=== PATIENT | male | born 1970 | race Caucasian/White ===

== ENCOUNTER 2016-09-17 18:19 | Emergency (ER) | payer MEDICARE, OTHER ==
[~2016-09-17] VITALS: Ht 182.9 cm; Wt 71.0 kg
[2016-09-17 19:37] VITALS: BP 142/81; PULSE 73; RESP 18; TEMP 97.6; O2SAT 99
--- NOTE | 2016-09-17 20:14 | PD ---
HPI Chief Complaint: Psychiatric Symptoms Time Seen by Provider: 20:09 Travel History International Travel<30 days: No Contact w/Intl Traveler<30days: No Traveled to known affect area: No History of Present Illness HPI 46-year-old male that presents to the ED for evaluation of psych. Patient was Mathur acted by police after apparently his father called the waxing machine operator stating that he was homicidal and suicidal. Patient denies any history of this. Patient appears to be very angry about his situation at this time and been here. He denies any medical complaints other than having a history of seizure disorder. From my medical records patient was here about 10 years ago and per the notes from the ED physician at the time he does appear to have some extensive psychiatric history including suicidal attempts in the past as well as anoxic encephalopathy with dementia. Patient denies drinking alcohol. Patient states that he does smoke. He denies any medical problems to me at this time. Per patient he states compliance with his medications. He is not somewhat forthcoming with information and does appear to be aggravated by questioning. He denies any substance abuse. He denies any homicidal or suicidal ideation at this time. Patient was Mathur acted by police. Unclear as to the length of symptoms that caused the patient to be Mathur acted. PFSH Past Medical History Diminished Hearing: No Seizures: Yes Tetanus Vaccination: Unknown Past Surgical History Surgical History: No Previous Surgery Social History Alcohol Use: Yes Tobacco Use: Yes (2PPD ) Substance Use: No Allergies-Medications (Allergen,Severity, Reaction): Coded Allergies: No Known Allergies (Verified , 09/17/16) Uncoded Allergies: NKA (Allergy, Unknown, 02/04/03) Reported Meds & Prescriptions Reported Meds & Active Scripts Active Active Prescriptions or Reported Medications Unobtainable Review of Systems Except as stated in HPI: all other systems reviewed are Neg Physical Exam Narrative GENERAL: SKIN: Warm and dry. HEAD: Atraumatic. Normocephalic. EYES: Pupils equal and round. No scleral icterus. No injection or drainage. ENT: No nasal bleeding or discharge. Mucous membranes pink and moist. Tongue is midline. No uvula deviation. NECK: Trachea midline. No JVD. CARDIOVASCULAR: Regular rate and rhythm. No murmurs, S3, S4. RESPIRATORY: No accessory muscle use. Clear to auscultation. Breath sounds equal bilaterally. GASTROINTESTINAL: Abdomen soft, non-tender, nondistended. Hepatic and splenic margins not palpable. MUSCULOSKELETAL: Extremities without clubbing, cyanosis, or edema. No obvious deformities. Full range of motion of the upper and lower extremities bilaterally. 2+ pulses bilaterally. NEUROLOGICAL: Awake and alert. No obvious cranial nerve deficits. Motor grossly within normal limits. Five out of 5 muscle strength in the arms and legs. Normal speech. PSYCHIATRIC: Depression mood and affect; insight and judgment normal. Data Data Last Documented VS Vital Signs Date Time Temp Pulse Resp B/P Pulse Ox O2 Delivery O2 Flow Rate FiO2 09/17/16 19:40 18 09/17/16 19:37 97.6 73 142/81 99 Orders Complete Blood Count With Diff (09/17/16 18:54) Comprehensive Metabolic Panel (09/17/16 18:54) Psych Screen (09/17/16 18:54) Drug Screen, Random Urine (09/17/16 18:54) Alcohol (Ethanol) (09/17/16 18:54) Salicylates (Aspirin) (09/17/16 18:54) Tylenol (Acetaminophen) (09/17/16 18:54) Labs Laboratory Tests Test 09/17/16 09/17/16 19:50 20:00 White Blood Count 6.5 TH/MM3 Red Blood Count 3.99 MIL/MM3 Hemoglobin 13.2 GM/DL Hematocrit 37.6 % Mean Corpuscular Volume 94.4 FL Mean Corpuscular Hemoglobin 33.1 PG Mean Corpuscular Hemoglobin 35.0 % Concent Red Cell Distribution Width 13.9 % Platelet Count 264 TH/MM3 Mean Platelet Volume 9.7 FL Neutrophils (%) (Auto) 52.9 % Lymphocytes (%) (Auto) 39.4 % Monocytes (%) (Auto) 5.2 % Eosinophils (%) (Auto) 1.5 % Basophils (%) (Auto) 1.0 % Neutrophils # (Auto) 3.4 TH/MM3 Lymphocytes # (Auto) 2.6 TH/MM3 Monocytes # (Auto) 0.3 TH/MM3 Eosinophils # (Auto) 0.1 TH/MM3 Basophils # (Auto) 0.1 TH/MM3 CBC Comment DIFF FINAL Differential Comment Sodium Level 135 MEQ/L Potassium Level 3.8 MEQ/L Chloride Level 101 MEQ/L Carbon Dioxide Level 24.9 MEQ/L Anion Gap 9 MEQ/L Blood Urea Nitrogen 8 MG/DL Creatinine 0.95 MG/DL Estimat Glomerular Filtration 85 ML/MIN Rate Random Glucose 87 MG/DL Calcium Level 9.0 MG/DL Total Bilirubin 0.4 MG/DL Aspartate Amino Transf 15 U/L (AST/SGOT) Alanine Aminotransferase 34 U/L (ALT/SGPT) Alkaline Phosphatase 84 U/L Total Protein 6.9 GM/DL Albumin 3.8 GM/DL Salicylates Level 4.1 MG/DL Acetaminophen Level LESS THAN 2.0 MCG/ML Ethyl Alcohol Level 6 MG/DL Urine Opiates Screen NEG Urine Barbiturates Screen NEG Urine Amphetamines Screen NEG Urine Benzodiazepines Screen NEG Urine Cocaine Screen NEG Urine Cannabinoids Screen POS MDM Medical Decision Making Medical Screen Exam Complete: Yes Emergency Medical Condition: Yes Medical Record Reviewed: Yes Interpretation(s) CBC & BMP Diagram 09/17/16 19:50 tox positive for alcohol and marijuana Differential Diagnosis Depression versus suicidal ideation versus anxiety versus adjustment disorder versus mood disorder versus bipolar disorder versus schizophrenia versus paranoid disorder versus psychosis versus substance abuse versus alcohol abuse versus alcohol induced psychosis versus homicidality addition versus cutting versus personality disorder Narrative Course 46 yo male that presents to the ED for psych eval after BA. Patient was properly examined and found to have signs and symptoms of psychiatric illness. No sign of acute distress. Labs ordered. Patient will be medically cleared. Okay to be seen by psych. Mental health screening was discussed with the patient. Diagnosis Primary Impression: Mood disorder Scripts Unable to Obtain Active Prescriptions or Reported Meds Benson Quiroz Sep 17, 2016 20:14
[2016-09-17 20:30] LABS: AUTOMATED NEUTROPHIL # 3.4 TH/MM3 (1.8-7.7); BASOPHIL # 0.1 TH/MM3 (0-0.2); EOSINOPHIL # 0.1 TH/MM3 (0-0.4); EOSINOPHIL % 1.5 % (0.0-4.0); HEMATOCRIT 37.6 % (39.0-51.0); HEMO FLAGS DIFF FINAL; LYMPH % 39.4 % (9.0-44.0); LYMPHOCYTE # 2.6 TH/MM3 (1.0-4.8); MEAN CELL VOLUME 94.4 FL (80.0-100.0); MEAN CORPUSCULAR HEMOGLOBIN 33.1 PG (27.0-34.0); MONO % 5.2 % (0.0-8.0); NEUT % 52.9 % (16.0-70.0); PLATELET COUNT 264 TH/MM3 (150-450); RED BLOOD COUNT 3.99 MIL/MM3 (4.50-5.90); RED CELL DISTRIBUTION WIDTH 13.9 % (11.6-17.2); WHITE BLOOD COUNT 6.5 TH/MM3 (4.0-11.0)
[2016-09-17 20:42] LABS: AMPHETAMINE, URINE NEG (NEG); BARBITURATES, URINE NEG (NEG); COCAINE, URINE NEG (NEG)
[2016-09-17 20:53] LABS: ANION GAP 9 MEQ/L (5-15); AST (GOT) 15 U/L (15-37); BICARBONATE 24.9 MEQ/L (21.0-32.0); BLOOD UREA NITROGEN 8 MG/DL (7-18); CHLORIDE 101 MEQ/L (98-107); GLOMERULAR FILTRATION RATE 85 ML/MIN (>89); POTASSIUM 3.8 MEQ/L (3.5-5.1); SODIUM (NA) 135 MEQ/L (136-145)
[2016-09-17 20:57] LABS: ACETAMINOPHEN LESS THAN 2.0 MCG/ML (10.0-30.0); ALKALINE PHOSPHATASE 84 U/L (45-117); ALT (GPT) 34 U/L (12-78); TOTAL BILIRUBIN ADULT 0.4 MG/DL (0.2-1.0)
[2016-09-17] MEDS ORDERED: NABU1TAB37 PO (22:57)
[2016-09-17] MEDS ORDERED: MIRTA15 PO (22:57)
[2016-09-17] MEDS ORDERED: LEVE750T8 PO (22:57)
[2016-09-17] MEDS ORDERED: HALO5TAB PO (22:57)
[2016-09-17] MEDS ORDERED: BENZ1TAB PO (22:57)
[2016-09-17] MEDS ORDERED: ATOR40TA16 PO (22:57)
[2016-09-17] MEDS ORDERED: DIVA500T PO (22:57)
[2016-09-17] MEDS ORDERED: QUET1TAB10 PO (22:57)
[2016-09-17] MEDS ORDERED: VALP250C PO (22:57)
[2016-09-17] MEDS ORDERED: PHEN200C3 PO (22:57)
[2016-09-17 23:21] VITALS: BP 118/64; PULSE 78; RESP 18; O2SAT 98
[2016-09-18] MEDS ORDERED: HALOPERIDOL LACTATE 5 MG/ML AMP IM ONE (01:45)
[2016-09-18] MEDS ORDERED: LORazepam 2 MG/ML VIAL IM ONE (01:45)
[2016-09-18 03:25] VITALS: BP 114/60; PULSE 75; RESP 18; O2SAT 98
[2016-09-18 14:10] VITALS: BP 127/61; PULSE 67; RESP 18; TEMP 96.7; O2SAT 96
[2016-09-18] MEDS ORDERED: NICOTINE 21 MG/24 HR PATCH T-DERMAL ONE (18:15)
--- NOTE | 2016-09-18 18:51 | PD ---
History of Present Illness Chief Complaint: Psychiatric Symptoms Time Seen by Provider: 18:45 Travel History International Travel<30 Days: No Contact w/Intl Traveler<30days: No Known affected area: No Legal Status Legal Status: Mathur Act Mathur Act Signed By: Vidya Hoffman History of Present Illness: 46-year-old male brought in under a Mathur act with reports by his father that he was going to stab his brother and kill himself. Patient is known to this physician from previous inpatient treatment. He has a history of brain damage. At this time the patient is in a good mood, denies any ideation, plan or intention to harm himself or his brother or anyone else. Patient's cognition is baseline and he is verbally jesús for safety. Patient has reportedly been compliant with medications and inpatient psychiatric hospitalization is not indicated at this time. Patient's father has chosen to care for him in the past and if father is currently disappointed with patient's behavior, patient can be taken to outpatient clinic for medication changes. Therefore Mathur act was discontinued. PFSH Past Medical History Dementia: Yes Diminished Hearing: No Neurologic: Yes (ANOXIC ENCEPHALOPATHY WITH DEMENTIA) Seizures: Yes Tetanus Vaccination: Unknown Past Surgical History Surgical History: No Previous Surgery Psychiatric History Psychiatric History Hx Psychiatric Treatment: DR TAYLOR History of Inpatient Treatment: Yes Guns or firearms in home: No Social History Hx Alcohol Use: Yes (OCC) Hx Tobacco Use: Yes (2PPD ) Hx Substance Use: Yes (MARIJUANA) Substance Use Type: Marijuana Hx of Substance Use Treatment: No Allergies-Medications (Allergen,Severity, Reaction): Coded Allergies: No Known Allergies (Verified , 09/17/16) Uncoded Allergies: NKA (Allergy, Unknown, 02/04/03) Reported Meds & Prescriptions Reported Meds & Active Scripts Active Reported Valproic Acid 250 Mg Cap 500 Mg PO TID Atorvastatin (Atorvastatin Calcium) 40 Mg Tab 40 Mg PO HS Levetiracetam 750 Mg Tab 750 Mg PO BID Mirtazapine 15 Mg Tab 15 Mg PO HS Phenytoin Extended 200 Mg Cap 200 Mg PO TID Benztropine (Benztropine Mesylate) 1 Mg Tab 1 Mg PO HS Divalproex DR (Divalproex Sodium) 500 Mg Tabdr 500 Mg PO TID Haloperidol 5 Mg Tab 5 Mg PO BID Quetiapine (Quetiapine Fumarate) 300 Mg Tab 300 Mg PO BID Nabumetone 500 Mg Tab 500 Mg PO BID Review of Systems ROS Limitations: Clinical Condition Exam Exam Limitations: Clinical Condition Alert: Yes [place]: Person, Place, Date, Situation Mood: Calm Affect: Appropriate Speech: Clear Eye Contact: Normal Memory Intact: Immediate Insight/Judgement Adequate MDM Medical Decision Making Medical Record Reviewed: Yes Assessment/Plan Patient's Mathur act is being lifted and he is being given a taxi Pass home. Father is indicating he will not take patient back in the home but this is a decision between father and son. This physician has read reports regarding patient's stay here for the last 24 hours and patient has demonstrated that he is calm and cooperative and not currently a danger to himself or others. Least restrictive alternative applies. Orders Complete Blood Count With Diff (09/17/16 18:54) Comprehensive Metabolic Panel (09/17/16 18:54) Psych Screen (09/17/16 18:54) Drug Screen, Random Urine (09/17/16 18:54) Alcohol (Ethanol) (09/17/16 18:54) Salicylates (Aspirin) (09/17/16 18:54) Tylenol (Acetaminophen) (09/17/16 18:54) Haloperidol Inj (Haldol Inj) (09/18/16 01:45) Lorazepam Inj (Ativan Inj) (09/18/16 01:45) Diet Regular Basic (09/18/16 Breakfast) Diet Regular Basic (09/18/16 Lunch) Diet Regular Basic (09/18/16 Dinner) Nicotine 21 Mg Patch.24 Hr (Habitrol 21 (09/18/16 18:15) Results Vital Signs Date Time Temp Pulse Resp B/P Pulse Ox O2 Delivery O2 Flow Rate FiO2 09/18/16 14:10 96.7 67 18 127/61 96 Room Air 09/18/16 03:25 75 18 114/60 98 Room Air 09/17/16 23:21 78 18 118/64 98 Room Air 09/17/16 19:40 18 09/17/16 19:37 97.6 73 18 142/81 99 Laboratory Tests Test 09/17/16 09/17/16 19:50 20:00 White Blood Count 6.5 Red Blood Count 3.99 Hemoglobin 13.2 Hematocrit 37.6 Mean Corpuscular Volume 94.4 Mean Corpuscular Hemoglobin 33.1 Mean Corpuscular Hemoglobin 35.0 Concent Red Cell Distribution Width 13.9 Platelet Count 264 Mean Platelet Volume 9.7 Neutrophils (%) (Auto) 52.9 Lymphocytes (%) (Auto) 39.4 Monocytes (%) (Auto) 5.2 Eosinophils (%) (Auto) 1.5 Basophils (%) (Auto) 1.0 Neutrophils # (Auto) 3.4 Lymphocytes # (Auto) 2.6 Monocytes # (Auto) 0.3 Eosinophils # (Auto) 0.1 Basophils # (Auto) 0.1 CBC Comment DIFF FINAL Differential Comment Sodium Level 135 Potassium Level 3.8 Chloride Level 101 Carbon Dioxide Level 24.9 Anion Gap 9 Blood Urea Nitrogen 8 Creatinine 0.95 Estimat Glomerular Filtration 85 Rate Random Glucose 87 Calcium Level 9.0 Total Bilirubin 0.4 Aspartate Amino Transf 15 (AST/SGOT) Alanine Aminotransferase 34 (ALT/SGPT) Alkaline Phosphatase 84 Total Protein 6.9 Albumin 3.8 Salicylates Level 4.1 Acetaminophen Level LESS THAN 2.0 Ethyl Alcohol Level 6 Urine Opiates Screen NEG Urine Barbiturates Screen NEG Urine Amphetamines Screen NEG Urine Benzodiazepines Screen NEG Urine Cocaine Screen NEG Urine Cannabinoids Screen POS Diagnosis Primary Impression: Adjustment disorder with mixed disturbance of emotions and conduct Dez Heller MD Sep 18, 2016 18:51
== END 2016-09-18 19:39 | disposition home or self-care (01) ==
LOC: NEDAMB 18:19 → NEPJ 09-18 19:39
DX: F43.25 Adjustment disorder with mixed disturbance of emotions and conduct (principal)
CPT/HCPCS: 80053; 80307; 85025; 99284